=== PATIENT | female | born 1980 | race African-American/Black ===

== ENCOUNTER 2018-03-25 09:28 | Emergency (ER) | payer OTHER ==
--- NOTE | 2018-03-25 10:19 | ED Physician Documentation ---
PD HPI LOWER EXT INJURY - Stated complaint Stated Complaint: LEFT KNEE PX - Chief complaint Chief Complaint: Ext Problem - History obtained from History obtained from: Patient, Family - History of Present Illness PD HPI LOW EXT INJURY LOCATION: Left, Knee Type of injury: Other (playing [employer]) Where injury occurred: Work Timing - onset: How many days ago (4) Timing - duration: Days (4) Timing - details: Abrupt onset, Still present Improved by: Rest, Immobilization Worsened by: Moving, Palpating Associated symptoms: Swelling. No: Weakness, Numbness Contributing factors: No: Anticoagulated Similar symptoms before: Diagnosis (DJD of the knee joint) Recently seen: Not recently seen - Additional information Additional information: 38-year-old female who is previously been diagnosed with degenerative joint disease of the knee was out playing [email or web address] when she finished she had pain in her knee she did not have a specific injury to the knee but overuse. 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 She is having trouble with weightbearing and pain. She has had x-rays of the knee previously showing the DJD. She does have a cracking noise with weight bearing and knee bending that has been present for a long time. Review of Systems Constitutional: denies: Fever Eyes: denies: Decreased vision Ears: denies: Ear pain Nose: denies: Congestion Throat: denies: Sore throat Cardiac: denies: Chest pain / pressure Respiratory: denies: Dyspnea, Cough GI: denies: Nausea, Vomiting : denies: Dysuria PD PAST MEDICAL HISTORY - Present Medications Home Medications: Ambulatory Orders Medication Instructions Recorded Confirmed HYDROcod/ACETAM 5/325 [[place] 5/325] 1 - 2 ea PO Q6H PRN #15 tablet 03/25/18 Naproxen 250 mg PO 03/25/18 SUMAtriptan [Imitrex] 25 mg ORAL PRN PRN 03/25/18 03/25/18 Sertraline [Zoloft] 50 mg PO DAILY 03/25/18 03/25/18 - Allergies Allergies/Adverse Reactions: Allergies Allergy/AdvReac Type Severity Reaction Status Date / Time No Known Drug Allergies Allergy Verified 03/25/18 09:37 PD ED PE NORMAL - Vitals Vital signs reviewed: Yes (hypertensive ) - General General: Alert and oriented X 3, No acute distress, Well developed/nourished - HEENT HEENT: Atraumatic, PERRL, EOMI - Respiratory Respiratory: No respiratory distress - Derm Derm: Normal color, Warm and dry, No rash - Extremities Extremities: No deformity, No edema, Other (There is point tenderness along the lateral joint line of the left knee with a minimal effusion present. The ligaments are stable to testing. 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 Calcification along the distal patellar tendon may reflect patellar tendinitis or old Boyd-Schlatter disease. ), EMP read indepedently, See rad report PD MEDICAL DECISION MAKING - ED course Complexity details: reviewed results, re-evaluated patient, considered differential, d/w patient, d/w family ED course: 38-year-old female with a prior history of left knee pain has acute pain with effusion in the suprapatellar area and she does have evidence of prior Loretta- Schlatter. We will place her into a knee immobilizer and refer her to orthopedics for further treatment. She is administered dexamethasone here in the emergency department we will provide some anti-inflammatory. - Sepsis Event Vital Signs: Vital Signs - 24 hr 03/25/18 09:35 Temperature 36.9 C Heart Rate 66 Respiratory 16 Rate Blood Pressure 134/94 H O2 Saturation 98 Oxygen O2 Source Room air Departure - Departure Disposition: 01 Home, Self Care Clinical Impression: Knee effusion, left Condition: Stable Instructions: ED Effusion Knee Follow-Up: [facility] [Provider Group] Prescriptions: HYDROcod/ACETAM 5/325 [[place] 5/325] 1 - 2 ea PO Q6H PRN #15 tablet PRN Reason: Pain Forms: Activity restrictions
[2018-03-25] MEDS ORDERED: DEXAMETHASONE 10 MG/ML VIAL PO STA (10:30)
--- NOTE | 2018-03-25 11:18 | XRAY Report ---
Procedure Date: 03/25/2018 Accession Number: [id number] / [id number] Procedure: XR - Knee 4 View LT CPT Code: FULL RESULT: EXAM: LEFT KNEE RADIOGRAPHY EXAM DATE: 03/25/2018 10:52 AM. CLINICAL HISTORY: Swelling and pain to lat knee with excess activity. COMPARISON: None. TECHNIQUE: 4 views. FINDINGS: Bones: No fractures or bone lesions. Joints: Small suprapatellar effusion. No subluxations. Minimal early spurring along the lateral knee joint. Soft Tissues: No soft tissue swelling. Calcification along the distal patellar tendon may be related to old Loretta-Schlatter's disease or other trauma, or patellar tendinitis. IMPRESSION: Early degenerative change left knee with small suprapatellar effusion. Calcification along the distal patellar tendon may reflect patellar tendinitis or old [place] Schlatter's disease. RADIA
[2018-03-25 12:15] VITALS: BP 130/90
== END 2018-03-25 12:13 | disposition home or self-care (01) ==
LOC: ED 09:28
DX: M25.462 Effusion, left knee (principal); M17.12 Unilateral primary osteoarthritis, left knee
CPT/HCPCS: 99283

== ENCOUNTER 2018-03-27 06:17 | Emergency (ER) | payer OTHER ==
[2018-03-27 06:27] VITALS: BP 126/94
[2018-03-27] MEDS ORDERED: DEXAMETHASONE 10 MG/ML VIAL PO STA (07:29)
--- NOTE | 2018-03-27 07:39 | ED Physician Documentation ---
PD HPI LOWER EXT INJURY - Stated complaint Stated Complaint: L KNEE PX - Chief complaint Chief Complaint: Ext Problem - History obtained from History obtained from: Patient, Family - History of Present Illness PD HPI LOW EXT INJURY LOCATION: Left, Knee Type of injury: Other (overuse) Where injury occurred: Work Timing - onset: How many days ago (3) Timing - duration: Days (3) Timing - details: Gradual onset, Still present Improved by: Rest, Immobilization, Meds Worsened by: Moving Associated symptoms: Swelling. 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 She has had a problem with her knee for quite some time but she felt that this was much worse after the excessive physical activity. She came into the emergency department was seen here x-rays were obtained she was placed into a knee immobilizer diagnosed with a knee sprain and given a dose of dexamethasone. She states that following that she was able to get around fairly easily with immobilizer on and she went to work where she does need to do a fair amount of walking and by the end of the day she began to experience some pain and took the knee immobilizer off and she has been experiencing some pain since. She does not have increased swelling or exquisite pain. She is not having warmth to the joint or fever. The timeframe correlates with the administration of dexamethasone for the relief of symptoms. She is currently doing work to advance her rank and this requires her to [place] at [place] of places [place] during the [place]. This is on synchronized schedule that is current and she cannot miss this work. Review of Systems Constitutional: denies: Fever, Chills, Myalgias Respiratory: denies: Cough GI: denies: Vomiting, Constipation, Diarrhea : denies: Dysuria, Frequency Skin: denies: Rash Musculoskeletal: reports: Joint pain, Pain with weight bearing. denies: Neck pain, Back pain Neurologic: denies: Generalized weakness, Focal weakness, Numbness PD PAST MEDICAL HISTORY - Past Medical History Cardiovascular: Hypertension Neuro: Migraines Psych: Depression, Anxiety Musculoskeletal: Other Other Past Medical History: DJD - Past Surgical History Past Surgical History: No - Present Medications Home Medications: Ambulatory Orders Medication Instructions Recorded Confirmed HYDROcod/ACETAM 5/325 [[place] 5/325] 1 - 2 ea PO Q6H PRN #15 tablet 03/25/18 Naproxen 250 mg PO 03/25/18 SUMAtriptan [Imitrex] 25 mg ORAL PRN PRN 03/25/18 03/25/18 Sertraline [Zoloft] 50 mg PO DAILY 03/25/18 03/25/18 - Allergies Allergies/Adverse Reactions: Allergies Allergy/AdvReac Type Severity Reaction Status Date / Time No Known Drug Allergies Allergy Verified 03/27/18 06:30 - Social History Does the pt smoke?: Yes Smoking Status: Current every day smoker Does the pt drink ETOH?: No Does the pt have substance abuse?: No - Immunizations Immunizations are current?: Yes - POLST Patient has POLST: No PD ED PE NORMAL - Vitals Vital signs reviewed: Yes (hypertensive) - General General: Alert and oriented X 3, No acute distress, Well developed/nourished - HEENT HEENT: Atraumatic, PERRL, EOMI - Respiratory Respiratory: No respiratory distress - Derm Derm: Normal color, Warm and dry, No rash - Extremities Extremities: No deformity, No edema, Other (There is specific point tenderness to the lateral patella superiorly and the to the lateral joint line. There is no palpable effusion. She is able to extend the knee without exacerabation of pain. The ligaments are again stable to testing and the distal n/v is intact. ) - Neuro Neuro: Alert and oriented X 3, No motor deficit, No sensory deficit, Normal speech Eye Opening: Spontaneous Motor: Obeys Commands Verbal: Oriented GCS Score: 15 - Psych Psych: Normal mood, Normal affect Results - Vitals Vitals: Vital Signs - 24 hr 03/27/18 06:20 Temperature 36.3 C L Heart Rate 62 Respiratory 16 Rate Blood Pressure 126/94 H O2 Saturation 100 Oxygen O2 Source Room air PD MEDICAL DECISION MAKING - ED course Complexity details: reviewed old records, reviewed results, re-evaluated patient , considered differential, d/w patient, d/w family ED course: 38-year-old female with a recent sprain of her knee appears to have had a significant benefit with the use of the dexamethasone as far as controlling her pain. When this wore off she has increased pain and she has now come to the emergency department. She does have important work to her today and will have the weekend off. We will repeat her dose of dexamethasone place her back into her knee immobilizer and instructed to reduce her level of activity and wear the immobilizer until her follow-up with orthopedics. I did not find evidence to suggest the patient had an alternative process such as septic arthritis. She does not have significant swelling or warmth to the joint she is able to bear weight with increased but not intolerable pain and she is able to run the joint through a range of motion without significant pain. - Sepsis Event Vital Signs: Vital Signs - 24 hr 03/27/18 06:20 Temperature 36.3 C L Heart Rate 62 Respiratory 16 Rate Blood Pressure 126/94 H O2 Saturation 100 Oxygen O2 Source Room air Departure - Departure Disposition: 01 Home, Self Care Clinical Impression: Left knee sprain Qualifiers: Encounter type: subsequent encounter Involved ligament of knee: unspecified ligament Qualified Code(s): S83.92XD - Sprain of unspecified site of left knee, subsequent encounter Condition: Stable Instructions: ED Sprain Knee Follow-Up: ERLIN MEEHAN MD [Primary Care Provider] - [facility] [Provider Group]
== END 2018-03-27 07:47 | disposition home or self-care (01) ==
LOC: ED 06:17
DX: S83.92XA Sprain of unspecified site of left knee, initial encounter (principal); X50.9XXA Other and unspecified overexertion or strenuous movements or postures, initial encounter; I10 Essential (primary) hypertension; F17.200 Nicotine dependence, unspecified, uncomplicated; Y93.74 Activity, frisbee
CPT/HCPCS: 99283

== ENCOUNTER 2023-06-16 12:03 | Emergency (ER) | payer OTHER ==
[2023-06-16 12:42] LABS: BASOPHILS # (AUTO) 0.1 10^3/uL (0.0-0.1); BASOPHILS % (AUTO) 0.6 %; HCT - HEMATOCRIT 41.8 % (37.0-47.0); HGB - HEMOGLOBIN 13.5 g/dL (12.0-16.0); LYMPHOCYTES # (AUTO) 0.8 10^3/uL (1.5-3.5); LYMPHOCYTES % (AUTO) 7.3 %; MEAN CORPUSCULAR HEMOGLOBIN 29.3 pg (27.0-31.0); MEAN CORPUSCULAR HGB CONC 32.3 g/dL (32.0-36.0); MEAN CORPUSCULAR VOLUME 90.7 fL (81.0-99.0); MEAN PLATELET VOLUME 10.6 fL (7.9-10.8); MONOCYTES # (AUTO) 0.3 10^3/uL (0.0-1.0); MONOCYTES % (AUTO) 2.9 %; NEUTROPHILS # (AUTO) 9.1 10^3/uL (1.5-6.6); PLT - PLATELET COUNT 308 10^3/uL (130-450); RED BLOOD COUNT 4.61 10^6/uL (4.20-5.40); RED CELL DISTRIBUTION WIDTH 15.7 % (12.0-15.0); WHITE BLOOD COUNT 10.3 x10^3/uL (4.8-10.8)
[2023-06-16 13:16] LABS: ALBUMIN 4.8 g/dL (3.2-5.5); ALBUMIN/GLOBULIN RATIO 1.5 (1.0-2.2); ALKALINE PHOSPHATASE 59 IU/L (42-121); ALT ALANINE AMINOTRANSFERASE 39 IU/L (10-60); AST ASPARTATE AMINOTRANSFERASE 42 IU/L (10-42); BILIRUBIN,TOTAL 0.5 mg/dL (0.2-1.0); BUN - BLOOD UREA NITROGEN 10 mg/dL (6-20); CARBON DIOXIDE - CO2 26 mmol/L (21-32); CHLORIDE 105 mmol/L (101-111); CREATININE 0.7 mg/dL (0.6-1.3); GFR - MDRD 110 (>89); GLUCOSE 153 mg/dL (74-104); POTASSIUM 4.3 mmol/L (3.5-4.5); SODIUM 143 mmol/L (135-145); TOTAL PROTEIN 7.9 g/dL (6.4-8.9)
[2023-06-16 13:17] LABS: LIPASE < 10 U/L (11-82)
[2023-06-16 15:35] VITALS: O2SAT 98
[2023-06-16 15:39] LABS: GLUCOSE, URINE (UA) NEGATIVE (NEGATIVE); KETONES,URINE (UA) >=80 mg/dL (NEGATIVE); LEUKOCYTE ESTERASE, URINE NEGATIVE (NEGATIVE); NITRITE,URINE NEGATIVE (NEGATIVE); OCCULT BLOOD,URINE NEGATIVE (NEGATIVE); PROTEIN,URINE 30 mg/dL (NEGATIVE); UROBILINOGEN,URINE 0.2 (NORMAL) E.U./dL (NORMAL)
[2023-06-16 15:40] LABS: BILIRUBIN,URINE NEGATIVE (NEGATIVE); CLARITY,URINE SL. CLOUDY (CLEAR); HCG UR QUAL NEGATIVE; ICTOTEST,URINE NEGATIVE
--- NOTE | 2023-06-16 15:45 | ED Physician Documentation ---
History of Present Illness - Stated complaint Stated Complaint: ABD PX, NAUSEA - Chief complaint Chief Complaint: Abd Pain - Additonal information Additional information: 43-year-old female presents emergency department for evaluation of 3 days of fairly significant right lower and left lower quadrant abdominal pain. She reports vomiting once due to pain. No fevers. Thinks she may be constipated. Her last effective bowel movement was about a week ago. She has intermittently had pain like this and defecation has resolved the symptoms. She has taken a dose of MiraLAX some laxatives as well as drink some teas without resolution. No pertinent past surgical history. Takes no prescribed medications. Review of Systems Constitutional: denies: Fever Cardiac: reports: Reviewed and negative Respiratory: reports: Reviewed and negative GI: reports: Abdominal Pain, Constipation. denies: Hematemesis, Bloody / black stool Skin: reports: Reviewed and negative Musculoskeletal: reports: Reviewed and negative PD PAST MEDICAL HISTORY - Past Medical History Cardiovascular: Hypertension Neuro: Migraines Psych: Depression, Anxiety Musculoskeletal: Other - Past Surgical History Past Surgical History: No - Present Medications Home Medications: Ambulatory Orders Medication Instructions Recorded Confirmed HYDROcod/ACETAM 5/325 [[place] 5/325] 1 tablet PO BID PRN #10 tablet 06/16/23 - Allergies Allergies/Adverse Reactions: Allergies Allergy/AdvReac Type Severity Reaction Status Date / Time No Known Drug Allergies Allergy Verified 03/27/18 06:30 - Social History Does the pt smoke?: Yes Smoking Status: Current every day smoker Does the pt drink ETOH?: No Does the pt have substance abuse?: No - Immunizations Immunizations are current?: Yes - POLST Patient has POLST: No PD ED PE NORMAL - General General: Alert and oriented X 3. No: No acute distress (appears uncomfortable and in pain) - HEENT HEENT: PERRL - Cardiac Cardiac: RRR, No murmur - Respiratory Respiratory: Clear bilaterally - Abdomen Abdomen: Soft. No: Normal bowel sounds (reduced), Non tender (Generalized abdominal tenderness especially lower left and right without guarding or rebound.) - Back Back: No CVA TTP - Derm Derm: Warm and dry - Neuro Neuro: Alert and oriented X 3, operator 2-12 intact Eye Opening: Spontaneous Motor: Obeys Commands Verbal: Oriented GCS Score: 15 Results - Vitals Vitals: Vital Signs - 24 hr 06/16/23 06/16/23 06/16/23 12:19 15:32 17:00 Temperature 36.7 C 36.8 C 36.8 C Heart Rate 114 H 100 88 Respiratory 22 20 18 Rate Blood Pressure 159/117 H 150/90 H 140/88 H O2 Saturation 100 98 98 Oxygen O2 Source Room air - Labs Labs: Laboratory Tests 06/16/23 06/16/23 06/16/23 12:36 12:36 15:30 WBC 10.3 RBC 4.61 Hgb 13.5 Hct 41.8 MCV 90.7 MCH 29.3 MCHC 32.3 RDW 15.7 H Plt Count 308 MPV 10.6 Neut # (Auto) 9.1 H Lymph # (Auto) 0.8 L Union # (Auto) 0.3 Eos # (Auto) 0.0 Baso # (Auto) 0.1 Absolute Nucleated RBC 0.00 Nucleated RBC % 0.0 Sodium 143 Potassium 4.3 Chloride 105 Carbon Dioxide 26 Anion Gap 12.0 BUN 10 Creatinine 0.7 Estimated GFR (MDRD) 110 Glucose 153 H Calcium 10.0 Total Bilirubin 0.5 AST 42 ALT 39 Alkaline Phosphatase 59 Total Protein 7.9 Albumin 4.8 Globulin 3.1 Albumin/Globulin Ratio 1.5 Lipase < 10 L Urine Color YELLOW Urine Clarity SL. CLOUDY Urine pH 6.0 Ur Specific [place] >=1.030 H Urine Protein 30 H Urine Glucose (UA) NEGATIVE Urine Ketones >=80 H Urine Occult Blood NEGATIVE Urine Nitrite NEGATIVE Urine Bilirubin NEGATIVE Urine Urobilinogen 0.2 (NORMAL) Ur Leukocyte Esterase NEGATIVE Urine RBC 0-5 Urine WBC 0-3 Ur Squamous Epith Cells MANY Squamous H Urine Bacteria Rare Urine Mucus Marked Strands Ur Microscopic Review INDICATED Urine Culture Comments NOT INDICATED Urine HCG, Qual 06/16/23 15:30 WBC RBC Hgb Hct MCV MCH MCHC RDW Plt Count MPV Neut # (Auto) Lymph # (Auto) Union # (Auto) Eos # (Auto) Baso # (Auto) Absolute Nucleated RBC Nucleated RBC % Sodium Potassium Chloride Carbon Dioxide Anion Gap BUN Creatinine Estimated GFR (MDRD) Glucose Calcium Total Bilirubin AST ALT Alkaline Phosphatase Total Protein Albumin Globulin Albumin/Globulin Ratio Lipase Urine Color Urine Clarity Urine pH Ur Specific [place] Urine Protein Urine Glucose (UA) Urine Ketones Urine Occult Blood Urine Nitrite Urine Bilirubin Urine Urobilinogen Ur Leukocyte Esterase Urine RBC Urine WBC Ur Squamous Epith Cells Urine Bacteria Urine Mucus Ur Microscopic Review Urine Culture Comments Urine HCG, Qual NEGATIVE - Rads (name of study) CT abd Relevant Findings:: Final report received (Multicystic pelvic mass/masses, 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 Malignant neoplasm cannot be excluded. Guynn consult recommended. No adenopathy in the pelvis or retroperitoneum. Chronic well- established splenorenal shunt.) PD Medical Decision Making - ED course Complexity details: reviewed results, re-evaluated patient, d/w patient ED course: 43-year-old female presents emergency department for evaluation 1 week g eneralized lower abdominal/pelvic pain. She reports that she felt she was constipated and had not had a bowel movement for about a week. States she has had this similar in the past. Here in the emergency department CBC and electrolytes were obtained that did not show any acute worrisome abnormalities. She is not . UA without worrisome features. Subsequently a CT of the belly was performed which unfortunately showed multiple large cystic pelvic masses 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 A neoplasm could not be excluded. I spoke briefly on the phone with Dr. Johnathon Fraga with gynecology. He would like to see the patient in office tomorrow. Here in the ER the patient was given a dose of Toradol with some relief of pain and then this was followed by a second dose of Dilaudid. She will be discharged with prescription for [place]. Prompt follow-up with gynecology tomorrow for further evaluation and management of these pelvic masses. I am prescribing a short course of short-acting opioid pain medication for this patient. 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 I have discussed that the opioids are for short term therapy only, and will not be refilled from the ED. Departure - Departure Disposition: 01 Home, Self Care Clinical Impression: Lower abdominal pain Ovarian cystic mass Qualifiers: Laterality: bilateral Qualified Code(s): N83.201 - Unspecified ovarian cyst, right side; N83.202 - Unspecified ovarian cyst, left side Follow-Up: Johnathon Fraga MD [Provider Admit Priv/Credential] - Prescriptions: HYDROcod/ACETAM 5/325 [[place] 5/325] 1 tablet PO BID PRN #10 tablet PRN Reason: Pain Comments: Unfortunately the CT scan today shows that you have 2 very large cystic masses on each ovary. The cause or etiology of these is not clear though it can be a sign of cancer. I spoke with Dr. Johnathon Fraga with gynecology. He would like to see you in office tomorrow. Please call the clinic tomorrow at [phone]. They are anticipating your phone call and will make a an appointment for you to be seen in the afternoon. For constipation you can take MiraLAX to glass fulls each day until you have 3-4 watery bowel movements. In general I would like you to take Tylenol and ibuprofen for discomfort but for more severe pain I have sent a limited prescription of [place] to the [facility]. I am prescribing a short course of narcotic pain medication for you. These are potentially dangerous and addictive medications that should be used carefully. These medications may constipate you. Take an [id number] stool softener (docusate) twice daily with plenty of water while taking these medications. If you go 24 hours without a bowel movement, take [id number] miralax, per package instructions. Do not drink or drive while taking these medications. If you received narcotic or sedating medications while in the emergency department, do not drive for 24 hours. Store this medication in a safe, secure place and out of reach of children. It is a violation of federal law to give or sell this medication to another person or to use in a manner other than prescribed. The ED will not refill narcotic prescriptions, including prescriptions lost or stolen. To dispose of unwanted medications: 1. [facility] at [address] in [place] has a medication drop box. They accept prescription medications (in pill form) Friday through Friday 9:00 a.m. to 5:00 p.m. 2. [facility] accepts prescription medications (in pill form only) for disposal year round. Call for more information. 3. Contact the [facility] for the next [facility] sponsored prescription drug collection event. , [phone], or [phone]; Note that many narcotic pain relievers also contain Tylenol/acetaminophen. Please ensure that your total dose of acetaminophen from all sources does not exceed 3 g (3000 mg) per day. Forms: PCP List
[2023-06-16 15:47] LABS: BACTERIA,URINE Rare /HPF (None Seen); MUCUS,URINE Marked Strands; RBC,URINE 0-5 /HPF (0-5); SQUAMOUS EPITHELIAL CELL,UR MANY Squamous (<= Few); WBC,URINE 0-3 /HPF (0-5)
[2023-06-16] MEDS: SODIUM CHLORIDE 0.9% 1,000 ML IV STA (15:58)
[2023-06-16] MEDS: KETOROLAC 30 MG/ML VIAL IVP STA (15:58)
[2023-06-16] MEDS: iohexoL-300 100 ML VIAL IVP ONE (16:25)
--- NOTE | 2023-06-16 17:26 | CT Report ---
PROCEDURE: ABDOMEN/PELVIS W INDICATIONS: constipationl RLQ/LLQ abd pain CONTRAST: 100mL Omni 300 TECHNIQUE: After the administration of contrast, 5 mm thick sections acquired from the diaphragms to the symphys is. 5 mm thick coronal and sagittal reformats were acquired. For radiation dose reduction, the foll owing was used: automated exposure control, adjustment of mA and/or kV according to patient size. COMPARISON: None FINDINGS: Image quality: Excellent. Lung bases and heart: Unremarkable. Liver: No solid mass. Gallbladder and biliary tree: Normal gallbladder. Nondilated biliary tree. Spleen: Spleen is mildly diminutive and there is a splenorenal shunt. Pancreas: No pancreatic ductal dilation. Adrenals: No adrenal nodule. Kidneys and ureters: No hydronephrosis. No renal cystic lesion which requires follow up. No solid mas s. Bowel and peritoneum: Stomach and small bowel are normal. Normal appendix. The colon is decompressed. There are occasional diverticula in the ascending colon. Lymph nodes: No central or retroperitoneal adenopathy. Vessels: Normal caliber. PELVIS Reproductive organs: There is probably 2 large multicystic pelvic masses, one arising from each ovary . The left measures about 11.8 cm in greatest diameter. The mass anterior in the pelvis likely arises from the right ovary and measures about 11.2 cm. This mass demonstrates a thicker solid components a nd a small protrusion anteriorly. The uterus appears normal. Bladder: No abnormal wall thickening, accounting for underdistension. Pelvic lymph nodes: No pelvic adenopathy by size criteria. Bones: No aggressive osseous abnormality. Other: Small amount of dependent free pelvic fluid is present. IMPRESSION: 1. 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 Malignant neoplasm cannot be exclud ed. 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 2. No adenopathy in the pelvis or retroperitoneum. 3. Chronic, well established splenorenal shunt. \ Reviewed by: Gali Moreno MD on 06/16/2023 5:25 PM PST Approved by: Gali Moreno MD on 06/16/2023 5:25 PM PST Station ID: [id number]
[2023-06-16 17:43] VITALS: BP 140/88
[2023-06-16] MEDS: HYDROmorphone 1 MG/ML CARPUJECT IVP STA (17:50)
== END 2023-06-16 18:15 | disposition home or self-care (01) ==
LOC: ED 12:03
DX: N83.202 Unspecified ovarian cyst, left side (principal); N83.201 Unspecified ovarian cyst, right side; I10 Essential (primary) hypertension; F17.200 Nicotine dependence, unspecified, uncomplicated
CPT/HCPCS: 36415; 80053; 81001; 81003; 81025; 83690; 85025; 87086; 96374; 96375; 99284